=== PATIENT | male | born 1975 ===

== ENCOUNTER 2018-05-05 05:13 | Day surgery (SDC) | payer OTHER ==
[~2018-05-05] VITALS: Ht 157.5 cm; Wt 65.8 kg
[2018-05-05] VITALS (12 sets, daily range): BP systolic 85–132; BP diastolic 45–81
[2018-05-05] MEDS ORDERED: IBUPROFEN PO (05:53)
[2018-05-05] MEDS ORDERED: Midazolam 2mg/2ml Inj ONE (06:39)
[2018-05-05] MEDS ORDERED: Ketorolac 30mg Inj ONE (06:39)
[2018-05-05] MEDS ORDERED: Bupivacaine 0.5% Inj 30 ml vial INJ ONE (06:39)
[2018-05-05] MEDS ORDERED: Propofol 200mg/20ml IV ONE (06:39)
[2018-05-05] MEDS ORDERED: Lidocaine 1% MPF 10mg/ml 5ml ONE (06:39)
[2018-05-05] MEDS ORDERED: fentaNYL 100 mcg/2 mL IV ONE (06:39)
[2018-05-05] MEDS ORDERED: Sterile Water Irrig 1000ml IRRIG ONE (07:00)
[2018-05-05] MEDS ORDERED: NS Irrig 1000ml ONE (07:00)
[2018-05-05] MEDS ORDERED: LR 1000ml ONE (07:00)
--- NOTE | 2018-05-05 07:17 | Pre-Procedure Note/Attestation ---
Pre-Procedure Note/Attestation Complete Prior to Procedure Planned Procedure: right Procedure Narrative: carpal tunnel release, open Indications for Procedure Pre-Operative Diagnosis: right carpal tunnel syndrome Attestation I attest that I discussed the nature of the procedure; its benefits; risks and complications; and alternatives (and the risks and benefits of such alternatives ), prior to the procedure, with the patient (or the patient's legal fulfillment representative). I attest that, if there was a reasonable possibility of needing a blood transfusion, the patient (or the patient's legal fulfillment representative) was given the [facility] standardized written summary, pursuant to the [place] Blood Safety Act ([place] Health and Safety Code # 1645, as amended). I attest that I re-evaluated the patient just prior to the surgery and that there has been no change in the patient's H&P, except as documented below: Cecilio Stanley MD May 05, 2018 07:17
[2018-05-05] MEDS ORDERED: NS Irrig 1000ml IRRIG ONE (07:37)
[2018-05-05] MEDS ORDERED: LR 1000ml 1,000 ML IVLG SCH (07:55)
[2018-05-05] MEDS ORDERED: Meperidine 50mg/ml Inj(FOR RIGORS ONLY) IV PRN (08:00)
[2018-05-05] MEDS ORDERED: fentaNYL 100 mcg/2 mL IV PRN (08:00)
[2018-05-05] MEDS ORDERED: Ketorolac 30mg Inj IV PRN (08:00)
[2018-05-05] MEDS ORDERED: DiphenhydrAMINE 50mg/ml Inj IVP PRN (08:00)
--- NOTE | 2018-05-05 08:06 | Brief Operative Note ---
Immediate Post Operative Note Operative Note Chief Complaint: hand numbness post trauma Pre-op Diagnosis: right carpal tunnel syndrome Procedure: right carpal tunnel release Post-op Diagnosis: same as pre-op Specimen: none Complications: none Condition: stable Fluids: 30cc Estimated Blood Loss: none Implant(s) used?: No Cecilio Stanley MD May 05, 2018 08:06
--- NOTE | 2018-05-05 09:51 | Anethesia Preoperative Eval ---
Anesthesia Pre-op PMH/ROS General Date of Evaluation: May 05, 2018 Time of Evaluation: 06:50 Anesthesiologist: Jacqueline ASA Score: ASA 2 Mallampati Score Class I : Soft palate, uvula, fauces, pillars visible Class II: Soft palate, uvula, fauces visible Class III: Soft palate, base of uvula visible Class IV: Only hard plate visible Mallampati Classification: Class II Surgeon: Jaden Diagnosis: R CTS Surgical Procedure: R carpal tonnel release Anesthesia History: none Family History: no anesthesia problems Allergies: Coded Allergies: ACETAMINOPHEN (Verified Allergy, Unknown, 05/03/18) Medications: see eMAR Past Medical History Cardiovascular: Denies: HTN, CAD, [place], valve dz, arrhythmia, other Pulmonary: Reports: BING; Denies: asthma, COPD, other Gastrointestinal/Genitourinary: Reports: GERD; Denies: CRI, ESRD, other Neurologic/Psychiatric: Denies: dementia, CVA, depression/anxiety, TIA, other Endocrine: Denies: DM, hypothyroidism, steroids, other HEENT: Denies: cataract (L), cataract (R), glaucoma, [place] (L), [place] (R), other Hematology/Immune: Denies: anemia, DVT, bleeding disorder, other Musculoskeletal/Integumentary: Denies: OA, RA, DJD, DDD, edema, other Other: other PMH Narrative: as above PSxH Narrative: R shoulder Sx Anesthesia Pre-op Phys. Exam Physician Exam Last Vital Signs Date Time Temp Pulse Resp B/P (MAP) Pulse Ox O2 Delivery O2 Flow Rate FiO2 05/05/18 08:50 97.6 63 18 105/77 99 Room Air 97.6 05/05/18 08:30 6 Constitutional: NAD Neurologic: CN 2-12 intact Cardiovascular: RRR, no M/R/G Respiratory: CTA Gastrointestinal: S/NT/ND Airway Exam Mallampati Score: Class II MO: full ROM: full Teeth: intact Dentures: no upper, no lower Anesthesia Pre-op A/P Labs see chart Studies Pre-op Studies: EKG - NSR Risk Assessment & Plan Assessment: ASA 2 Plan: GA with LMA Status Change Before Surgery: No Pre-Antibiotics Drug: Ancef 1gr. Given Within 1 Hr of Incision: Yes Time Given: 07:12 Tal Phillips MD May 05, 2018 09:51
--- NOTE | 2018-05-05 09:53 | Immediate Post-Op Evaluation ---
Immediate Post-Op Evalulation Immediate Post-Op Evalulation Procedure: R carpal tonnel release Date of Evaluation: May 05, 2018 Time of Evaluation: 07:58 IV Fluids: 1000 Blood Products: none Estimated Blood Loss: min Urinary Output: none Blood Pressure Systolic: 90 Blood Pressure Diastolic: 54 Pulse Rate: 76 Respiratory Rate: 20 O2 Sat by Pulse Oximetry: 99 Temperature (Fahrenheit): 97.5 Pain Score (1-10): 1 Nausea: No Vomiting: No Patient Status: reacts, patent, none Hydration Status: adequate Tal Phillips MD May 05, 2018 09:53
--- NOTE | 2018-05-05 09:54 | 48 Hour Post Anesthesia Eval ---
Post Anesthesia Evaluation Procedure: R carpal tonnel release Date of Evaluation: May 05, 2018 Time of Evaluation: 09:53 Blood Pressure Systolic: 105 0: 72 Pulse Rate: 80 Respiratory Rate: 20 Temperature (Fahrenheit): 97.5 O2 Sat by Pulse Oximetry: 98 Airway: patent Nausea: No Vomiting: No Pain Intensity: 1 Hydration Status: adequate Cardiopulmonary Status: stable Mental Status/LOC: patient returned to baseline Follow-up Care/Observations: n/a Post-Anesthesia Complications: none Follow-up care needed: ready to discharge Tal Phillips MD May 05, 2018 09:54
--- NOTE | 2018-05-11 09:02 | Operative Note - Dictated ---
DATE OF OPERATION: 05/05/2018 SURGEON: Cecilio Stanley M.D. COMMUNITY SERVICES MANAGER: None. PREOPERATIVE DIAGNOSIS: Right wrist carpal tunnel syndrome. POSTOPERATIVE DIAGNOSIS: Right wrist carpal tunnel syndrome. NAME OF THE OPERATION: Right carpal tunnel release, open. ESTIMATED BLOOD LOSS: Trivial. TOURNIQUET TIME: Zero. ANESTHESIA: General LMA. INDICATIONS FOR OPERATION: The patient has posttraumatic carpal tunnel syndrome. He has failed conservative measures. Electrodiagnostic studies as well as physical examination confirm the diagnosis. DESCRIPTION OF PROCEDURE IN DETAIL: The patient was brought into the operating room, identified as the patient. The right arm was prepped and draped in the usual sterile fashion. A time-out was performed. The site had been marked and confirmed. The skin was marked for a carpal tunnel release. The incision area was injected with Marcaine. A longitudinal incision was made in the proximal palm. Incision was about 1 and 0.5 inches in length. Dissection was carried down bluntly until the palmar fascia was identified. A hemostat was used to pepe the palmar fascia. The hemostat was gently inserted beneath the palmar fascia. A knife was used to the widely palmar fascia. This was continued carefully on the ulnar side of the median nerve proximally and distally until the median nerve was completely decompressed and confirmed with a [place] elevator. The median nerve was gently and minimally mobilized to be certain there were no other compressive factors. There were no other compressive factors. The volar blood vessel was seen on the median nerve after the release, but not before. There was no true hourglass compression. The wound was thoroughly irrigated with normal saline. The skin was closed using 4-0 nylon interrupted simple. The wound was again instilled with Marcaine. A bulky [place] hand dressing was applied to the hand. He was awakened in the operating room in satisfactory condition. Cecilio Stanley M.D. DR: MONSE JOB#: [id number] CC: Cecilio Stanley M.D.; [address] [place] [address] [place] [address]; Fax#: [phone]
== END 2018-05-05 09:40 | disposition home or self-care (01) ==
LOC: SUR 05:13
DX: G56.01 Carpal tunnel syndrome, right upper limb (principal); G47.33 Obstructive sleep apnea (adult) (pediatric); K21.9 Gastro-esophageal reflux disease without esophagitis; Z88.6 Allergy status to analgesic agent
CPT/HCPCS: 64721; J0690; J1885; J2250; J2704; J3010; J3490; J7120; 94003; 94150